=== PATIENT | female | born 1995 | race Caucasian/White ===

== ENCOUNTER 2016-12-13 01:19 | Emergency (ER) | payer OTHER ==
[~2016-12-13] VITALS: Ht 157.5 cm; Wt 99.8 kg
[~2016-12-13 01:19] MED LIST: BENADRYL ALLERG25 MG PO; HYDROCODON-ACE1 EA10 PO; IBUPROFEN800 MG PO; KEFLEX500 MG PO; PROZAC10 MG PO; ULTRAM50 MG PO; ZOFRAN ODT8 MG PO
[2016-12-13] MEDS ORDERED: MUPIROCIN22 GM TOP (01:57)
== END 2016-12-13 02:09 | disposition home or self-care (01) ==
LOC: ED 01:19
DX: L81.8 Other specified disorders of pigmentation (principal); J45.909 Unspecified asthma, uncomplicated; F41.9 Anxiety disorder, unspecified; F17.200 Nicotine dependence, unspecified, uncomplicated; Z88.7 Allergy status to serum and vaccine
CPT/HCPCS: 99282

== ENCOUNTER 2017-09-23 20:06 | Emergency (ER) | payer OTHER ==
[~2017-09-23] VITALS: Ht 157.5 cm; Wt 99.8 kg
[~2017-09-23 20:06] MED LIST changes: +MUPIROCIN22 GM TOP
[2017-09-23] MEDS ORDERED: IBUPROFEN200 M1 PO (20:15)
[2017-09-23] MEDS ORDERED: PENICILLIN V P500 MG PO (20:48)
== END 2017-09-23 21:03 | disposition home or self-care (01) ==
LOC: ED 20:06
DX: K08.89 Other specified disorders of teeth and supporting structures (principal); F17.200 Nicotine dependence, unspecified, uncomplicated; Z88.8 Allergy status to other drugs, medicaments and biological substances
CPT/HCPCS: 99282

== ENCOUNTER 2018-05-23 10:55 | Emergency (ER) | payer OTHER ==
[~2018-05-23] VITALS: Ht 157.5 cm; Wt 99.8 kg
[~2018-05-23 10:55] MED LIST changes: +IBUPROFEN200 M1 PO; +PENICILLIN V P500 MG PO
[2018-05-23] MEDS ORDERED: IBUPROFEN800 MG PO (12:34)
== END 2018-05-23 14:02 | disposition home or self-care (01) ==
LOC: ED 10:55
DX: M76.9 Unspecified enthesopathy, lower limb, excluding foot (principal); J45.909 Unspecified asthma, uncomplicated; F41.9 Anxiety disorder, unspecified; F17.200 Nicotine dependence, unspecified, uncomplicated; Z88.7 Allergy status to serum and vaccine
CPT/HCPCS: 73560; 99283-25

== ENCOUNTER 2018-08-21 16:44 | Emergency (ER) | payer BC ==
[~2018-08-21] VITALS: Ht 157.5 cm; Wt 99.8 kg
[2018-08-21] MEDS ORDERED: BACTRIM DS TAB1 EACH PO (20:20)
== END 2018-08-21 20:33 | disposition home or self-care (01) ==
LOC: ED 16:44
DX: L03.116 Cellulitis of left lower limb (principal); F17.200 Nicotine dependence, unspecified, uncomplicated; Z88.7 Allergy status to serum and vaccine
CPT/HCPCS: 99283

== ENCOUNTER 2020-01-22 23:01 | Emergency (ER) | payer OTHER ==
[~2020-01-22] VITALS: Ht 157.5 cm; Wt 99.8 kg
[~2020-01-22 23:01] MED LIST changes: +BACTRIM DS TAB1 EACH PO
== END 2020-01-23 00:19 | disposition home or self-care (01) ==
LOC: ED 23:01
DX: K59.00 Constipation, unspecified (principal); J45.909 Unspecified asthma, uncomplicated; F41.9 Anxiety disorder, unspecified; F17.200 Nicotine dependence, unspecified, uncomplicated; Z88.7 Allergy status to serum and vaccine
CPT/HCPCS: 74018; 84703; 99283-25

== ENCOUNTER 2021-09-14 20:40 | Emergency (ER) | payer OTHER ==
[~2021-09-14] VITALS: Ht 157.5 cm; Wt 133.8 kg
[2021-09-14] MEDS ORDERED: VENTOLIN HFA18 GM INH (22:10)
[2021-09-15] MEDS ORDERED: LASIX40 MG PO (01:33)
[2021-09-15] MEDS ORDERED: KLOR-CON M2020 MEQ PO (01:33)
--- NOTE | 2021-09-15 06:28 | EKG ---
[facility] [address] [place], [place] [address] Signed Normal sinus rhythm Normal ECG No previous ECGs available Confirmed by PRINCESS COOK MD ([id number] on 09/15/2021 6:28:32 AM Electronically Signed By: PRINCESS COOK MD 09/15/21627 PATIENT NAME: DOMINIC FARRELL Electrocardiogram DATE OF : [birth year] PHYSICIAN: PRINCESS COOK MD REPORT #: [id number] REPORT IS CONFIDENTIAL AND NOT TO BE RELEASED WITHOUT AUTHORIZATION
== END 2021-09-15 01:35 | disposition home or self-care (01) ==
LOC: ED 20:40
DX: I11.0 Hypertensive heart disease with heart failure (principal); I50.9 Heart failure, unspecified; J45.909 Unspecified asthma, uncomplicated; Z88.7 Allergy status to serum and vaccine; Z20.822 Contact with and (suspected) exposure to COVID-19
CPT/HCPCS: 36415; 71045; 74177; 80053; 81001; 83690; 83880; 84484; 84703; 85025; 87502; 93005; 93010; 99284-25; J1940; Q9967; U0003